=== PATIENT | female | born 1950 | race Caucasian/White ===

== ENCOUNTER 2016-05-20 07:45 | Emergency (ER) | payer OTHER ==
[~2016-05-20] VITALS: Ht 162.6 cm; Wt 72.6 kg
[~2016-05-20 07:45] MED LIST: CELECOXIB200 MG PO; DOK PLUS TABLE1 EACH PO; HYDROCODON-ACE1 EAC7 PO; IRON325 M1 PO; LOVENOX40 MG/0.4 SC; VITAMIN B COMP1 EACH PO; VITAMIN C1000 MG PO
[2016-05-20 09:33] VITALS: BP 143/92
== END 2016-05-20 09:34 | disposition home or self-care (01) ==
LOC: EME 07:45
DX: S80.01XA Contusion of right knee, initial encounter (principal); W00.0XXA Fall on same level due to ice and snow, initial encounter; Z96.651 Presence of right artificial knee joint; Z87.891 Personal history of nicotine dependence
CPT/HCPCS: 73564; 99281; 99283